=== PATIENT | male | born 1950 | race Caucasian/White ===

== ENCOUNTER → 2019-11-18 11:03 | Outpatient (CLI) | payer MEDICARE, BC, SELFPAY ==
--- NOTE | 2019-11-18 | DI.US.S_ITS ---
PROCEDURE: US ABDOMEN LIMITED INDICATIONS: Right lower quadrant, in groin area. TECHNIQUE: Real-time focused scanning was performed of the abdomen, with image documentation. COMPARISON: None. FINDINGS: Scanning over the right groin and right lower quadrant reveals no underlying evidence of inguinal hernia or mass. No abnormal fluid collection is seen. IMPRESSION: Normal limited targeted right lower quadrant and groin region ultrasound. Depending on the clinical status followup by CT scanning may become necessary. Dictated by: Lanre Stewart M.D. on 11/18/2019 at 13:34 Approved by: Lanre Stewart M.D. on 11/18/2019 at 13:35
--- NOTE | 2019-11-18 | DI.RAD.S_ITS ---
PROCEDURE: XR HIP W PEL IF DONE RT 2V INDICATIONS: Right lower quadrant pain/ right hip pain TECHNIQUE: 2 views of the hip were acquired. COMPARISON: None. FINDINGS: Bones: No fractures or dislocations. No suspicious bony lesions. The visualized pelvic ring appears intact. There is mild bilateral hip joint osteoarthritis as indicated by joint space narrowing, slightly greater on the right than the left. Soft tissues: No suspicious soft tissue calcifications or masses. IMPRESSION: Right greater than left mild bilateral hip joint osteoarthritis as indicated by slight hip joint space narrowing. Dictated by: Lanre Stewart M.D. on 11/18/2019 at 12:03 Approved by: Lanre Stewart M.D. on 11/18/2019 at 12:04
== END ==
PROVIDERS: PCP Family Medicine; Referring Provider Internal Medicine; Visit Provider Internal Medicine
DX: R10.31 Right lower quadrant pain (principal); M25.551 Pain in right hip; M16.0 Bilateral primary osteoarthritis of hip
CPT/HCPCS: 73502; 76705

== ENCOUNTER → 2019-12-23 10:57 | Outpatient (CLI) | payer MEDICARE, BC, SELFPAY ==
[2019-12-23 12:49] LABS: Alanine Aminotransferase 21 IU/L (<50); Albumin 4.4 g/dL (3.5-5.0); Albumin Globulin Ratio 1.7 (1.0-2.8); Alkaline Phosphatase 74 U/L (38-126); Aspartate Aminotransferase 27 IU/L (17-59); BUN Creatinine Ratio 17.9 (6-22); Blood Urea Nitrogen 14 mg/dL (9-20); Calcium 9.5 mg/dL (8.4-10.2); Carbon Dioxide 27 mmol/L (22-32); Chloride 106 mmol/L (98-107); Estimated Glomerular Filt Rate > 60.0 mL/min (>60); Globulin 2.6 g/dL (1.7-4.1); Glucose 97 mg/dL (80-110); HEMOLYSIS < 15 (0-50); Potassium 4.8 mmol/L (3.4-5.1); Sodium 138 mmol/L (137-145)
--- NOTE | 2019-12-23 12:57 | DI.CT.S_ITS ---
PROCEDURE: CT ABDOMEN PELVIS W CON INDICATIONS: right lower quadrant pain TECHNIQUE: After the administration of oral and intravenous contrast, 5 mm thick sections acquired from the diaphragms to the symphysis. 5 mm thick coronal and sagittal reformats were performed. For radiation dose reduction, the following was used: automated exposure control, adjustment of mA and/or kV according to patient size. COMPARISON: [facility], , ABDOMEN LIMITED, 11/18/2019, 11:31. FINDINGS: Image quality: Excellent. ABDOMEN: Lung bases: Lung bases are clear. Heart size is normal. Solid organs: Liver is normal in size and enhancement. Subcentimeter hypodensity in the right lobe of the liver which is most likely a benign cyst or hemangioma. Gallbladder is unremarkable . Biliary system is non-dilated. Pancreas enhances normally. Spleen is normal in size and enhancement. No adrenal nodules. Kidneys are normal in size and enhancement, without hydronephrosis. Left kidney simple cyst measuring 2.9 cm. Peritoneum and bowel: No small bowel obstruction. Diverticulosis without diverticulitis. Normal appendix. No free fluid. No pneumoperitoneum. Nodes and vessels: No retroperitoneal or mesenteric adenopathy. Aorta and inferior vena cava are normal in caliber. Miscellaneous: No ventral hernias. PELVIS: Genitourinary: Bladder wall thickness is normal. Prostatomegaly. Miscellaneous: No inguinal hernias identified. No adenopathy. Bones: No suspicious bony lesions. Minimal anterior listhesis of L4 on L5. Mild lumbar spine degenerative change. No vertebral body compression fractures. IMPRESSION: No acute abnormality identified. No acute appendicitis. No free fluid. Diverticulosis without diverticulitis. Dictated by: Braeden Flores M.D. on 12/23/2019 at 14:24 Approved by: Braeden Flores M.D. on 12/23/2019 at 14:32
== END ==
PROVIDERS: PCP Family Medicine; Referring Provider Family Medicine; Visit Provider Family Medicine
DX: R10.31 Right lower quadrant pain (principal); N40.0 Benign prostatic hyperplasia without lower urinary tract symptoms; K57.90 Diverticulosis of intestine, part unspecified, without perforation or abscess without bleeding; N28.1 Cyst of kidney, acquired
CPT/HCPCS: 36415; 74177; 80053; Q9967

== ENCOUNTER → 2019-12-26 08:13 | Outpatient (CLI) | payer MEDICARE, BC, SELFPAY ==
[2019-12-27 03:08] LABS: COVID19 Sendout Not Detected (Not Detect)
== END ==
PROVIDERS: PCP Family Medicine; Visit Provider Physician Assistant
DX: Z11.59 Encounter for screening for other viral diseases (principal)
CPT/HCPCS: 87635

== ENCOUNTER 2019-12-29 13:03 | Day surgery (SDC) | payer MEDICARE, BC, SELFPAY ==
--- NOTE | 2019-12-29 11:55 | PM.HP.1 ---
History of Present Illness History of Present Illness Date Patient Seen: 12/29/19 Chief complaint: SDC Narrative: 69 year old male comes in today for consideration of a screening colonoscopy. He has had 2 previous lifetime colonoscopies, reportedly normal and indicated for screening only. Results not available at time of dictation. There have been no lower GI symptoms suggesting disease such as change in bowel habits, bleeding, abdominal pain or anemia. There's been no family history of colon cancer or colon polyps. Overall health issues have been stable, including no major cardiac events for at least 6 weeks. PCP: Dr. Alonzo Past medical history: Tendinitis Benign essential tremor Obstructive sleep apnea Allergic rhinitis BPH with urinary obstruction Osteoporosis idiopathic Depression Chronic leg pain Past surgical history: Hernia repair Tonsillectomy Family history: Noncontributory Social history: Retired, . Patient History Medical History (Updated 12/29/19 @ 13:11 by Kate Lopez RN) Allergic rhinitis (Acute) Benign essential tremor (Acute) BPH without urinary obstruction (Acute) Chronic leg pain (Acute) Depression, major, recurrent (Acute) Fatigue (Acute) Osteoporosis, idiopathic (Acute) Sleep apnea, obstructive (Acute) Tendonitis (Acute) Surgical History (Updated 12/29/19 @ 13:16 by Kate Lopez RN) H/O hernia repair (Acute) History of tonsillectomy (Acute) Meds Home Medications and Allergies Home Medications Medication Instructions Recorded Confirmed Type azelastine 1 spray INTRANASAL PRN 12/29/19 History etodolac 400 mg PO PRN PRN 12/29/19 12/29/19 History gabapentin 200 mg PO PRN PRN 12/29/19 12/29/19 History sertraline 150 mg PO DAILY 12/29/19 12/29/19 History Review of Systems Review of Systems ROS: Yes All systems reviewed with the patient and are negative except as otherwise documented Exam Narrative Exam Narrative: GENERAL: Alert and oriented, appearing stated age and in no acute distress. HEENT: Head normocephalic/atraumatic. Pupils equal, round, and reactive to light and accomodation. Extraocular muscles intact. Nasal mucosa moist, septum midline. Oral mucosa moist, no lesions. Neck soft and supple, no lymphadenopathy. LUNGS: Clear to ausculation bilaterally, no wheezes, rhonchi or rales. CV: Normal S1 and S2 with regular rate and rhythm, no audible murmurs, rubs or gallops. ABDOMEN: Soft, non-tender, non-distended, no organomegaly. Positive bowel sounds. EXTREMITIES: No clubbing, cyanosis, or edema. NEURO: Cranial nerves II through XII grossly intact, no focal deficits. PSYCH: Alert and oriented x 3. SKIN: No concerning lesions. Assessment & Plan Assessment & Plan narrative: 1. Screening for colon cancer Plan for colonoscopy. The nature and character of the procedure as well as anticipated results were discussed. The possibility of not completing the procedure was also discussed. Possible complications including aspiration pneumonia, bleeding, perforation and reaction to medications either for sedation or preparation and missed lesions were discussed. Questions were answered and proceeding to the colonoscopy was elected. Informed consent signed. I sincerely appreciate the referral allowing me to participate in this patient's care. Please contact me with any questions or concerns.
--- NOTE | 2019-12-29 11:58 | PM.OP.ENDO ---
Operative Date/Time/Diagnoses Date of procedure: 12/29/19 Pre-op diagnosis: 1. Screening for colon cancer Post-op diagnosis: other (As below) Procedure & Clinicians Study performed: Colonoscopy Same procedure as scheduled: Yes Surgeon: Stephanie Acosta Procedure Notes SCOAP/Timeout: 2:52 p.m. Procedure in detail: ENDOSCOPIST: Stephanie Acosta MD Sedation RN: Francis Parker RN Sedation start time: 2:53 p.m. Sedation end time: 3:07 p.m. PROCEDURE: Colonoscopy INDICATIONS: 1. Screening for colon cancer MEDICATION: Levsin 0.125 mg sublingual, incremental doses of Versed and fentanyl until appropriate level sedation achieved. ASA CLASS: 2 CECAL WITHDRAWAL TIME: 7 COMPLICATIONS: None. EXTENT OF PROCEDURE: Cecum. QUALITY OF PREP: Good with portions of liquid stool. PROCEDURE: Prior to insertion of the colonoscope, a digital rectal examination was accomplished with circumferential palpation of the distal rectal mucosa without significant findings being noted. The high-definition colonoscope was passed into the rectum in the usual fashion and advanced over to the cecum without difficulty. The ileocecal valve, appendiceal stoma, and medial wall all could be inspected and no abnormalities were seen. ASCENDING COLON: As the colonoscope was withdrawn, care was taken to expose and inspect the haustral folds and no abnormalities were seen. HEPATIC FLEXURE: Normal, no polyps, diverticula or other abnormalities. TRANSVERSE COLON: Normal, no polyps, diverticula or other abnormalities. DESCENDING COLON: Normal, no polyps, diverticula or other abnormalities. SIGMOID COLON: Minor diverticulosis, otherwise, normal, no polyps or other abnormalities. RECTUM: Normal. J maneuver was produced. There was no significant perianal disease. The J maneuver was broken. The remainder of the rectum was inspected and there was no external hemorrhoid disease. The scope was withdrawn. IMPRESSION: 1. Normal colonoscopy 2. Diverticulosis, minor, left-sided PLAN: 1. Repeat colonoscopy in 10 years, patient may consider opting out of screening at age 79 if life expectancy is less than 10 years. The possibility of a missed lesion including a malignancy has been discussed with the patient previously. Potential alarm symptoms have been discussed and should be reported immediately. Complications: none Post-procedure Recommendations: Colonscopy in 10 years Follow up: as needed Disposition: PACU
[2019-12-29] MEDS: HYOSCYAMINE 0.125 MG TABLET PO (13:36)
[2019-12-29] MEDS: LACTATED RINGERS 1,000 ML 200 ML IV (13:44)
[2019-12-29 13:46] VITALS: BP 141/87; PULSE 53; RESP 16; TEMP 36.4; O2SAT 96; BMI 25.1
[2019-12-29] MEDS: MIDAZOLAM 5 MG/5 ML VIAL IV (14:53)
[2019-12-29] MEDS: fentaNYL 250 MCG/5 ML INJ IV (14:58)
[2019-12-29 15:14] VITALS: BP 123/79; PULSE 52; RESP 14; TEMP 36.2; O2SAT 94
[2019-12-29 15:18] VITALS: BP 123/79; PULSE 51; RESP 14; O2SAT 93
[2019-12-29 15:22] VITALS: BP 130/87; PULSE 55; RESP 16; O2SAT 96
[2019-12-29 15:27] VITALS: BP 138/85; PULSE 54; RESP 15; TEMP 36.9; O2SAT 95
[2019-12-29 15:51] VITALS: BP 140/93; PULSE 59; RESP 17; TEMP 36.3; O2SAT 97
== END 2019-12-29 15:53 | disposition home or self-care (01) ==
PROVIDERS: PCP Family Medicine; Referring Provider Family Medicine; Visit Provider Student in an Organized Health Care Education/Training Program
PROC: 0DJD8ZZ Inspection of Lower Intestinal Tract, Via Natural or Artificial Opening Endoscopic (ICD-10-PCS; CPT 45378; principal; 2019-12-29 14:30)
DX: Z12.11 Encounter for screening for malignant neoplasm of colon (principal); G47.33 Obstructive sleep apnea (adult) (pediatric); K57.30 Diverticulosis of large intestine without perforation or abscess without bleeding
CPT/HCPCS: G0121; J2250; J3010

== ENCOUNTER → 2020-11-19 08:52 | Outpatient (CLI) | payer MEDICARE, BC, SELFPAY ==
[2020-11-19 09:34] LABS: COVID19 -Nasal RAPID Negative (Negative)
== END ==
PROVIDERS: Referring Provider Internal Medicine; Visit Provider Internal Medicine
DX: Z20.822 Contact with and (suspected) exposure to COVID-19 (principal)
CPT/HCPCS: 87635; C9803

== ENCOUNTER → 2020-11-19 10:53 | Outpatient (CLI) | payer MEDICARE, BC, SELFPAY ==
--- NOTE | 2020-11-24 11:05 | PM.PFT.1 ---
Pulmonary Function Test Referral & Results Date Patient Seen: 11/19/20 Requesting provider: Margarito Love Results: The spirometry demonstrates an FVC of 4.39 L which is 96% of predicted. The FEV1 was measured at 3.02 L which is 90% of predicted. The FEV1/FVC ratio was 69 which is 94% of predicted. Following the administration of bronchodilator there was a 36% improvement in FEF 25-75%. Lung volumes show an SVC of 4.41 L which is 93% of predicted. The diffusing capacity was measured at 27.69 which is 82% of predicted. The maximum voluntary ventilation was normal Interpretation: This study demonstrates perhaps extremely mild obstructive lung disease based on very minimal reduction FEV1, shape a flow volume loop, and minimal improvement in small airway flow based on change in FEF 25-75% as above after bronchodilator. This study could also be interpreted as normal
== END ==
PROVIDERS: PCP Family Medicine; Referring Provider Family Medicine; Visit Provider Family Medicine
DX: R06.02 Shortness of breath (principal); J98.8 Other specified respiratory disorders; Z87.891 Personal history of nicotine dependence; Z20.822 Contact with and (suspected) exposure to COVID-19
CPT/HCPCS: 87635; 94060; 94726; 94729; C9803

== ENCOUNTER → 2023-06-13 13:38 | Outpatient (CLI) | payer MEDICARE, BC, SELFPAY ==
--- NOTE | 2023-06-13 13:40 | DI.US.S_ITS ---
PROCEDURE: US ABD AORTA ANEURYSM SCREEN INDICATIONS: Personal history of nicotine dependence TECHNIQUE: Real time scanning was performed of the aorta and iliac arteries, with image documentation. COMPARISON: None. FINDINGS: Aorta: Proximal aortic diameter measures 2.6 cm. Mid-aorta measures 2.2 cm. Distal aortic diameter is 2.1 cm. Iliac arteries: Right common iliac artery measures 1.9 cm. Left common iliac artery measures 1.7 cm. IMPRESSION: No evidence of abdominal aortic aneurysm. Comment: Based on the size of the proximal aorta, consider follow-up imaging in 5 years. Dictated by: Sterling Wolfe M.D. on 06/13/2023 at 17:30 Approved by: Sterling Wolfe M.D. on 06/13/2023 at 17:31
== END ==
PROVIDERS: PCP Family Medicine; Referring Provider Family Medicine; Visit Provider Family Medicine
DX: Z13.6 Encounter for screening for cardiovascular disorders (principal); Z87.891 Personal history of nicotine dependence
CPT/HCPCS: 76706

== ENCOUNTER 2024-07-02 10:24 | Emergency (ER) | payer MEDICARE, BC, SELFPAY ==
[2024-07-02] VITALS (12 sets, daily range): BP systolic 140–173; BP diastolic 82–97; PULSE 52–60; RESP 12–22; TEMP 36.4; O2SAT 94–97; BMI 25.8
--- NOTE | 2024-07-02 11:07 | EKG_ITS ---
[address] [address] Test Date: 2024-07-02 Pat Name: Alex Lyn Department: Room: Gender: Male Supervisor Final: ROBERT : 1950 Requested By: Order Number: [id number] Reading MD: Velasquez Holloway MD Measurements Intervals [place] Rate: 58 P: 37 NE: 172 QRS: -6 QRSD: 92 T: -6 QT: 428 QTc: 420 Interpretive Statements Sinus bradycardia Electronically Signed On 07-03-2024 7:36:25 PST by Velasquez Holloway MD
--- NOTE | 2024-07-02 11:07 | DI.RAD.S_ITS ---
PROCEDURE: XR CHEST 1V INDICATIONS: chest pain TECHNIQUE: One view of the chest was acquired. COMPARISON: None. FINDINGS AND IMPRESSION: On this limited single view study, no airspace consolidation or pleural effusion is seen. Normal heart size. Mildly tortuous aorta. Degenerative osseous changes. Right chest wall nerve stimulator partially seen. Dictated by: Jabari Mike M.D. on 07/02/2024 at 12:09 Approved by: Jabari Mike M.D. on 07/02/2024 at 12:10
--- NOTE | 2024-07-02 11:07 | DI.CT.S_ITS ---
PROCEDURE: CT HEAD/BRAIN WO CON INDICATIONS: head pain nausea,recent brain stimulator placed. pt in triag TECHNIQUE: Noncontrast 4.5 mm thick angled axial sections acquired from the foramen magnum to the vertex, with coronal and sagittal reformats. For radiation dose reduction, the following was used: automated exposure control, adjustment of mA and/or kV according to patient size. COMPARISON: None. FINDINGS: Image quality: Diagnostic CSF spaces: Basal cisterns are patent. Lateral ventricles are symmetric. Volume: Vascular calcifications. Periventricular white matter disease is commonly seen with chronic microangiopathy. Volume loss is present. These findings are [id number] Brain: Mild edema is seen surrounding the deep brain stimulator, which is in expected position with tip near the thalamus. No acute hemorrhage. No gross loss of valdes-white differentiation. Craniofacial structures: Right calvarial and scalp postsurgical changes IMPRESSION: No acute hemorrhage or gross loss of valdes-white differentiation. Deep brain stimulator in place, tip is near the thalamus. There is mild edema adjacent to the stimulator in the right frontal lobe, likely postprocedural. Dictated by: Jabari Mike M.D. on 07/02/2024 at 12:10 Approved by: Jabari Mike M.D. on 07/02/2024 at 12:12
[2024-07-02 11:22] LABS: Add Manual Diff / Slide Review NO; Basophils Absolute Auto 0 /uL (0-100); Basophils Percent Auto 0.6 % (0-2); Eosinophils Absolute Auto 0 /uL (0-450); Eosinophils Percent Auto 0.1 % (2-4); Hematocrit 47.3 % (41-53); Hemoglobin 16.9 g/dL (13.5-17.5); Lymphocytes Absolute Auto 800 /uL (1100-4500); Mean Corpuscular HGB Conc 35.6 % (30-36); Mean Corpuscular Hemoglobin 34.5 PG (26-34); Mean Corpuscular Volume 96.9 fL (80-100); Monocytes Absolute Auto 300 /uL (0-900); Monocytes Percent Auto 3.8 % (3-14); Neutrophils Absolute Auto 7500 /uL (1500-7000); Neutrophils Percent Auto 86.5 % (50-75); Platelet Count 286 X10^3/uL (150-400); Red Blood Cell Count 4.88 X10^6/uL (4.5-5.9); Red Cell Distribution Width 12.3 % (11.6-14.8); White Blood Cell Count 8.6 X10^3/uL (4.5-11.0)
[2024-07-02 11:26] LABS: Prothrombin Time 11.5 SECONDS (9.4-12.5)
[2024-07-02 11:28] LABS: PTT Partial Thromboplastin Tim 31 SECONDS (25.1-36.5)
[2024-07-02 11:30] LABS: Alanine Aminotransferase 52 IU/L (<50); Albumin 4.6 g/dL (3.5-5.0); Albumin Globulin Ratio 1.6 (1.0-2.8); Alkaline Phosphatase 77 U/L (38-126); Aspartate Aminotransferase 42 IU/L (17-59); BUN Creatinine Ratio 18.6 (6-22); Bilirubin Total 1.1 mg/dL (0.2-1.3); Blood Urea Nitrogen 13 mg/dL (9-20); Calcium 9.9 mg/dL (8.4-10.2); Carbon Dioxide 19 mmol/L (22-32); Chloride 106 mmol/L (98-107); Creatine Kinase 46 U/L (55-170); Estimated Glomerular Filt Rate > 60 mL/min (>60); Globulin 2.8 g/dL (1.7-4.1); Glucose 139 mg/dL (80-110); HEMOLYSIS < 15 (0-50); Lipase 80 U/L (23-300); Potassium 4.1 mmol/L (3.4-5.1); Sodium 139 mmol/L (137-145); Total Protein 7.4 g/dL (6.3-8.2)
[2024-07-02 11:42] LABS: NT-proBNP (BNP-Adult 18+) 442 pg/mL (<125); Troponin I < 0.012 ng/mL (0.01-0.034)
--- NOTE | 2024-07-02 11:50 | PC.NURSE ---
This RNs first interaction with patient.
--- NOTE | 2024-07-02 13:06 | ED_ITS ---
HPI - Dizziness General Chief Complaint: Dizziness Stated Complaint: Throwing up, Dizzy,High blood pressure Time Seen by Provider: 07/02/24 12:46 Mode of arrival: Wheelchair History of Present Illness HPI Narrative: Patient here with . Complains dizziness with changes position getting up standing up with near-syncope. Has had nausea and vomiting. Symptoms started 23 hours ago at 2:00 p.m. yesterday. Patient is status post deep brain stimulator earlier this month at [facility]. It has not been activated/turned on, not until July. Stimulator is for essential tremor. Patient denies any recent illness fever chills cough cold or congestion. No prior history of vertigo. No hearing changes. No chest pain no palpitations no numbness tingling or weakness. No black or bloody stools. Related Data Home Medications Medication Instructions Recorded Confirmed azelastine 205.5 mcg (0.15 %) 1 spray intranasal PRN Unlisted 12/29/19 nasal spray etodolac 400 mg tablet 400 mg PO PRN PRN joint pain 12/29/19 12/29/19 gabapentin 100 mg capsule 200 mg PO PRN PRN tremors 12/29/19 12/29/19 sertraline 100 mg tablet 150 mg PO DAILY Anxiety or 12/29/19 12/29/19 Depression Previous Rx's Medication Instructions Recorded meclizine 25 mg tablet 25 mg PO QID PRN dizziness #20 tabs 07/02/24 ondansetron 4 mg disintegrating 4 mg PO Q8H PRN nausea and 07/02/24 tablet vomiting #20 tabs Allergies Allergy/AdvReac Type Severity Reaction Status Date / Time No Known Drug Allergies Allergy Verified 07/02/24 11:02 Review of Systems Review of Systems Narrative: GENERAL: Negative chills, fatigue, malaise, fever, sweats. HEENT: Negative sinus pain, ear pain, sore throat RESPIRATORY: Negative dyspnea, cough CARDIOVASCULAR: Negative chest pain, palpitations GASTROINTESTINAL: Negative nausea, vomiting, abdominal pain : Negative dysuria, frequency, hematuria MUSCULOSKELETAL: Negative muscle or bony pain SKIN: Negative rash, skin lesions NEUROLOGIC: Negative weakness, numbness, positive dizziness negative slurred speech negative facial droop negative limb weakness or numbness or tingling, positive headache which patient states is not new, positive tremors which is not new ROS Unobtainable: All systems reviewed & are unremarkable except as noted in HPI and below Patient History Medical History (Updated 07/02/24 @ 15:25 by Drake Rey MD) Depression, major, recurrent Osteoporosis, idiopathic Fatigue Chronic leg pain Benign essential tremor BPH without urinary obstruction Allergic rhinitis Sleep apnea, obstructive Tendonitis Surgical History (Updated 12/29/19 @ 13:16 by Kate Lopez RN) History of tonsillectomy H/O hernia repair Social History household members: spouse Smoking Status: Former smoker alcohol intake: current Smoking Status: Former smoker alcohol intake frequency: 0-2 drinks per day Exam Narrative Exam Narrative: GENERAL: in no distress, not toxic not dyspneic HEAD: Normocephalic. EYES: Pupils equal round, slight nystagmus horizontal ENT: Mucous membranes moist. NECK: Trachea midline. CARDIOVASCULAR: Regular rate and rhythm RESPIRATORY: Clear to auscultation. Breath sounds equal bilaterally. No wheezes, rales, or rhonchi. GASTROINTESTINAL: Abdomen soft, non-tender EXTREMITIES: No gross deformities. BACK: No flank tenderness. NEURO: AOx4. Clear speech, stood the patient up and feel off balance and sat back down in his bed. Feels much better, no facial droop light touch intact bilateral face hands and legs. 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 Fast exam is negative SKIN: Warm and dry PSYCH: Not anxious, is cooperative Initial Vital Signs Initial Vital Signs: Vital Signs Temperature 97.6 F 07/02/24 11:02 Pulse Rate 60 07/02/24 11:02 Respiratory Rate 14 07/02/24 11:02 Blood Pressure 168/97 H 07/02/24 11:02 Pulse Oximetry 96 07/02/24 11:02 Oxygen Delivery Method Room Air 07/02/24 11:02 Scores NIH Stroke Scale Level of Conciousness: Alert, keenly responsive Ask month/age: Answers both questions correctly. Open/close eyes, close hand: Performs both tasks correctly Best gaze horizontal: Normal Visual jay: No visual loss Facial palsy: Normal symetrical movement Left arm drift: No drift for full 10 sec Right arm drift: No drift for full 10 sec Left leg drift: No drift for full 5 sec Right leg drift: No drift for full 5 sec Limb ataxia: Absent Sensory on face/arms/legs: Normal, no sensory loss Best language: No aphasia, normal Dysarthria: Normal Extinction or inattention: No abnormality Total NIH Stroke scale score: 0 Course Orders Ordered: Discontinued Medications Sodium Chloride (Normal Saline 0.9%) 1,000 mls @ 1,000 mls/hr IV BOLUS ONE Stop: 07/02/24 14:04 Last Infusion: 07/02/24 15:33 Dose: Infused Documented By: Admin: 07/02/24 13:36 Dose: 1,000 mls/hr Documented By: JOANNE(2) Meclizine HCl (Meclizine Hcl 12.5 Mg Tablet) 25 mg PO NOW ONE Stop: 07/02/24 13:06 Last Admin: 07/02/24 13:36 Dose: 25 mg Documented By: JOANNE(2) Ondansetron HCl (Ondansetron 4 Mg/2 Ml Inj) 4 mg IV NOW PRN PRN Reason: Nausea And Vomiting Ondansetron HCl (Ondansetron 4 Mg Odt) 4 mg SL NOW PRN PRN Reason: Nausea And Vomiting Ondansetron HCl (Ondansetron 4 Mg/2 Ml Inj) 4 mg IV NOW ONE Stop: 07/02/24 13:06 Last Admin: 07/02/24 13:36 Dose: 4 mg Documented By: JOANNE(2) Vital Signs Vital signs: Vital Signs - 8 hr 07/02/24 11:02 07/02/24 11:56 07/02/24 11:57 Temperature 97.6 F Pulse Rate 60 60 58 L Respiratory Rate 14 13 Blood Pressure 168/97 H Pulse Oximetry 96 97 96 Oxygen Delivery Method Room Air 07/02/24 11:57 07/02/24 12:00 07/02/24 12:00 Temperature Pulse Rate 58 L Respiratory Rate 12 Blood Pressure 140/95 H 141/88 H Pulse Oximetry 95 Oxygen Delivery Method 07/02/24 12:30 07/02/24 12:30 07/02/24 13:00 Temperature Pulse Rate 59 L Respiratory Rate 13 Blood Pressure 141/88 H 150/89 H Pulse Oximetry 95 Oxygen Delivery Method 07/02/24 13:00 07/02/24 13:30 07/02/24 13:45 Temperature Pulse Rate 59 L 57 L Respiratory Rate 22 12 Blood Pressure 171/93 H Pulse Oximetry 97 94 Oxygen Delivery Method 07/02/24 13:45 07/02/24 14:00 07/02/24 14:00 Temperature Pulse Rate 53 L 53 L Respiratory Rate 14 12 Blood Pressure 161/93 H Pulse Oximetry 95 97 Oxygen Delivery Method MDM - Dizziness Lab Data 07/02/24 11:10 07/02/24 11:10 Labs: Lab Results 07/02/24 07/02/24 Range/Units 11:10 13:42 WBC 8.6 (4.5-11.0) X10^3/uL RBC 4.88 (4.5-5.9) X10^6/uL Hgb 16.9 (13.5-17.5) g/dL Hct 47.3 (41-53) % MCV 96.9 (80-100) fL MCH 34.5 H (26-34) PG MCHC 35.6 (30-36) % RDW 12.3 (11.6-14.8) % Plt Count 286 (150-400) X10^3/uL Neut % (Auto) 86.5 H (50-75) % Lymph % (Auto) 9.0 L (25-40) % Cross % (Auto) 3.8 (3-14) % Eos % (Auto) 0.1 L (2-4) % Baso % (Auto) 0.6 (0-2) % Neut # (Auto) 7500 H (5598-5465) /uL Lymph # (Auto) 800 L (5161-7774) /uL Cross # (Auto) 300 (0-900) /uL Eos # (Auto) 0 (0-450) /uL Baso # (Auto) 0 (0-100) /uL PT 11.5 (9.4-12.5) SECONDS INR 1.0 (0.9-1.3) APTT 31 (25.1-36.5) SECONDS Sodium 139 (137-145) mmol/L Potassium 4.1 (3.4-5.1) mmol/L Chloride 106 (98-107) mmol/L Carbon Dioxide 19 L (22-32) mmol/L BUN 13 (9-20) mg/dL Creatinine 0.70 (0.66-1.25) mg/dL Estimated GFR > 60 (>60) mL/min BUN/Creatinine Ratio 18.6 (6-22) Glucose 139 H (80-110) mg/dL Calcium 9.9 (8.4-10.2) mg/dL Magnesium 2.0 (1.6-2.3) mg/dL Total Bilirubin 1.1 (0.2-1.3) mg/dL AST 42 (17-59) IU/L ALT 52 H (<50) IU/L Alkaline Phosphatase 77 (38-126) U/L Total Creatine Kinase 46 L (55-170) U/L Troponin I < 0.012 (0.01-0.034) ng/mL NT-Pro-B Natriuret Pep 442 H (<125) pg/mL Total Protein 7.4 (6.3-8.2) g/dL Albumin 4.6 (3.5-5.0) g/dL Globulin 2.8 (1.7-4.1) g/dL Albumin/Globulin Ratio 1.6 (1.0-2.8) Lipase 80 (23-300) U/L SARS-CoV-2 (PCR) Negative (Negative) Influenza A (RT-PCR) Flu a negative (NEGATIVE) Influenza B (RT-PCR) Flu b negative (NEGATIVE) RSV (PCR) Negative (Negative) Imaging Data CT scan - head: Radiologist's Impression: [place] [address] CT Scan Report Signed Patient: Alex Lyn MR#: [id number] : 1950 Acct:[id number] Age/Sex: 73 / M Date of Service: 07/02/24 Loc: ED Accession Number: [id number] Procedure: CT head/brain wo con Ordering Provider: Drake Rey MD PROCEDURE: CT HEAD/BRAIN WO CON INDICATIONS: head pain nausea,recent brain stimulator placed. pt in triag TECHNIQUE: Noncontrast 4.5 mm thick angled axial sections acquired from the foramen magnum to the vertex, with coronal and sagittal reformats. For radiation dose reduction, the following was used: automated exposure control, adjustment of mA and/or kV according to patient size. COMPARISON: None. FINDINGS: Image quality: Diagnostic CSF spaces: Basal cisterns are patent. Lateral ventricles are symmetric. Volume: Vascular calcifications. Periventricular white matter disease is commonly seen with chronic microangiopathy. Volume loss is present. These findings are ycss-yv-fevzunga Brain: Mild edema is seen surrounding the deep brain stimulator, which is in expected position with tip near the thalamus. No acute hemorrhage. No gross loss of valdes-white differentiation. Craniofacial structures: Right calvarial and scalp postsurgical changes IMPRESSION: No acute hemorrhage or gross loss of valdes-white differentiation. Deep brain stimulator in place, tip is near the thalamus. There is mild edema adjacent to the stimulator in the right frontal lobe, likely postprocedural. Dictated by: Jabari Mike M.D. on 07/02/2024 at 12:10 Approved by: Jaabri Mike M.D. on 07/02/2024 at 12:12 Chest x-ray: Radiologist's Impression: [place] [address] XRay Report Signed Patient: Alex Lyn MR#: [id number] : 1950 Acct:[id number] Age/Sex: 73 / M Date of Service: 07/02/24 Loc: ED Accession Number: [id number] Procedure: XR chest 1V Ordering Provider: Drake Rey MD PROCEDURE: XR CHEST 1V INDICATIONS: chest pain TECHNIQUE: One view of the chest was acquired. COMPARISON: None. FINDINGS AND IMPRESSION: On this limited single view study, no airspace consolidation or pleural effusion is seen. Normal heart size. Mildly tortuous aorta. Degenerative osseous changes. Right chest wall nerve stimulator partially seen. Dictated by: Jabari Mike M.D. on 07/02/2024 at 12:09 Approved by: Jabari Mike M.D. on 07/02/2024 at 12:10 CTA - brain/neck: Radiologist's Impression: [place] [address] CT Scan Report Signed Patient: Alex Lyn MR#: [id number] : 1950 Acct:[id number] Age/Sex: 73 / M Date of Service: 07/02/24 Loc: ED Accession Number: [id number] Procedure: CT angio head and neck Ordering Provider: Drake Rey MD PROCEDURE: CT ANGIO HEAD AND NECK INDICATIONS: Ataxia TECHNIQUE: After the administration of intravenous contrast, 1 mm thick sections acquired from the aortic arch through the [place] of [place]. 3-dimensional txropvv-scyefghdf-rztijgyquv (MIP) and/or volume rendering reformats were acquired of the central intracranial vasculature and neck separately. For radiation dose reduction, the following was used: automated exposure control, adjustment of mA and/or kV according to patient size. COMPARISON: None. FINDINGS: Image quality: Diagnostic. BRAIN: Please refer to separately dictated CT of the head. HEAD CT ANGIOGRAPHY: Anterior circulation: Intracranial internal carotid arteries are normal in size and flow. The flow within the paired anterior cerebral arteries is normal and symmetric. The flow within the middle cerebral arteries is normal and symmetric. The anterior communicating artery is seen. No aneurysms are seen. Posterior circulation: Visualized portions of the vertebral arteries demonstrate normal caliber, and join to form a normal appearing basilar artery. Flow within the posterior cerebral arteries is normal and symmetric. No aneurysms are seen. NECK CT ANGIOGRAPHY: Carotid system: The great vessels demonstrate a conventional anatomy as they arise from the aortic arch. The origins of the common carotid arteries appear patent. The common carotid arteries demonstrate normal caliber and courses. The bifurcation regions are both widely patent. Area of dilatation of the mid right internal carotid artery measuring approximately 1 x 1 cm and spanning 2.1 cm cranial caudally. Otherwise, the internal carotid arteries are normal in caliber.. Posterior circulation: The origins of the vertebral arteries both appear widely patent. The more superior extracranial portions of both vertebral arteries also demonstrate normal courses and calibers. They join to form a normal appearing basilar artery. Soft tissues: Visualized neck soft tissues demonstrate no suspicious abnormalities. Bones: No suspicious bony lesions. Visualized cervical spine appears normally aligned. Degenerative changes of the spine. IMPRESSION: No significant intracranial arterial abnormality is seen. Area of dilatation of the right mid extracranial internal carotid artery measuring 1 x 1 cm, may represent an aneurysm. Otherwise, no significant abnormality is seen within the arteries of the neck. Any quantitative measurements of stenosis were performed using NASCET criteria. Dictated by: Jn Llanos M.D. on 07/02/2024 at 14:16 Approved by: Jn Llanos M.D. on 07/02/2024 at 14:22 MDM Narrative Medical decision making narrative: Patient here with . Complains dizziness with changes position getting up standing up with near-syncope. Has had nausea and vomiting. Symptoms started 23 hours ago at 2:00 p.m. yesterday. Patient is status post deep brain stimulator earlier this month at [facility]. It has not been activated/turned on, not until July. Stimulator is for essential tremor. Patient denies any recent illness fever chills cough cold or congestion. No prior history of vertigo. No hearing changes. No chest pain no palpitations no numbness tingling or weakness. No black or bloody stools After history and exam CT head EKG CBC CMP MDM Medical records reviewed: No recent visit for this complaint Differential considered: Includes but not limited to arrhythmia stroke dehydration vertigo anemia Lab Test results independently reviewed as above. Pertinent findings: WBC 8.6 hemoglobin 16.9 INR 1.0 sodium 139 potassium 4.1 bicarb 19 BUN 13 creatinine 0.7 glucose 139 AST 42 ALT 52 troponin less than 0.012 BNP 442 Independently reviewed EKG sinus bradycardia rate 58 otherwise normal EKG Imaging studies independently reviewed: CT head no acute finding chest x-ray no acute finding CT angiogram head and neck no acute finding Consultations: 3:19 p.m.. Spoke with [facility], Soraya Tripp, he has reviewed imaging. Patient can be follow up in their clinic. They are the only vascular services at [facility]. Primary care can give referral 3:29 p.m.. Spoke with primary care provider dr sam, who will place referral for vascular surgery for patient. He sees patient tomorrow in the office. He agrees with treatment plan. Treatments: Normal saline meclizine Zofran Re-evaluations: 2:46 p.m.. Patient feeling much better. Given IV fluids and meclizine and Zofran. Patient able to stand up at bedside without any dizziness now. He could not do this before. Reviewed them likely vertigo versus dehydration. Awaiting for CT angiogram to be reviewed by vascular surgeon for the right carotid artery, they do understand. This may not likely be the source of his dizziness. But needs to be evaluated before he leaves. Discussion: Appropriate for discharge home. Patient's symptoms improved with conservative treatment and meclizine Zofran and normal saline. Likely vertigo causing patient's symptoms. Return precautions reviewed. They desire discharge home. I did speak with vascular surgery as well as primary care provider. Diagnosis: Dizziness/vertigo Discharge Plan Departure Patient Disposition: Home Clinical Impression: Vertigo Instructions: DI for Vertigo Activity Restrictions/Additional Instructions: I am glad you are feeling better. Prescription for nausea medication and dizziness has been sent to your pharmacy to [facility] and continue. Please see your family doctor tomorrow as scheduled for re-evaluation and get referral to [facility] vascular surgery regarding the findings on your neck arteries. Prescriptions: New ondansetron 4 mg tablet,disintegrating 4 mg PO Q8H PRN (Reason: nausea and vomiting) Qty: 20 0RF meclizine 25 mg tablet 25 mg PO QID PRN (Reason: dizziness) Qty: 20 0RF No Action sertraline 100 mg Tablet 150 mg PO DAILY etodolac 400 mg Tablet 400 mg PO PRN PRN (Reason: joint pain) Rx Instructions: with food gabapentin 100 mg Capsule 200 mg PO PRN PRN (Reason: tremors) azelastine 0.15 % (205.5 mcg) Carr,Non-Aerosol 1 spray INTRANASAL PRN (Reason: Unlisted) Referrals: Margarito Sam MD [Primary Care Provider] - Erika Tripp PA-C [Non-Staff] - Stand Alone Forms: Patient Portal/API/Survey
--- NOTE | 2024-07-02 13:11 | DI.CT.S_ITS ---
PROCEDURE: CT ANGIO HEAD AND NECK INDICATIONS: Ataxia TECHNIQUE: After the administration of intravenous contrast, 1 mm thick sections acquired from the aortic arch through the [place] of [place]. 3-dimensional yxoazux-ziptjwuwc-swwxjcilhy (MIP) and/or volume rendering reformats were acquired of the central intracranial vasculature and neck separately. For radiation dose reduction, the following was used: automated exposure control, adjustment of mA and/or kV according to patient size. COMPARISON: None. FINDINGS: Image quality: Diagnostic. BRAIN: Please refer to separately dictated CT of the head. HEAD CT ANGIOGRAPHY: Anterior circulation: Intracranial internal carotid arteries are normal in size and flow. The flow within the paired anterior cerebral arteries is normal and symmetric. The flow within the middle cerebral arteries is normal and symmetric. The anterior communicating artery is seen. No aneurysms are seen. Posterior circulation: Visualized portions of the vertebral arteries demonstrate normal caliber, and join to form a normal appearing basilar artery. Flow within the posterior cerebral arteries is normal and symmetric. No aneurysms are seen. NECK CT ANGIOGRAPHY: Carotid system: The great vessels demonstrate a conventional anatomy as they arise from the aortic arch. The origins of the common carotid arteries appear patent. The common carotid arteries demonstrate normal caliber and courses. The bifurcation regions are both widely patent. Area of dilatation of the mid right internal carotid artery measuring approximately 1 x 1 cm and spanning 2.1 cm cranial caudally. Otherwise, the internal carotid arteries are normal in caliber.. Posterior circulation: The origins of the vertebral arteries both appear widely patent. The more superior extracranial portions of both vertebral arteries also demonstrate normal courses and calibers. They join to form a normal appearing basilar artery. Soft tissues: Visualized neck soft tissues demonstrate no suspicious abnormalities. Bones: No suspicious bony lesions. Visualized cervical spine appears normally aligned. Degenerative changes of the spine. IMPRESSION: No significant intracranial arterial abnormality is seen. Area of dilatation of the right mid extracranial internal carotid artery measuring 1 x 1 cm, may represent an aneurysm. Otherwise, no significant abnormality is seen within the arteries of the neck. Any quantitative measurements of stenosis were performed using NASCET criteria. Dictated by: Jn Llanos M.D. on 07/02/2024 at 14:16 Approved by: Jn Llanos M.D. on 07/02/2024 at 14:22
[2024-07-02] MEDS: ONDANSETRON 4 MG/2 ML INJ IV (13:36)
[2024-07-02] MEDS: MECLIZINE HCL 12.5 MG TABLET 25 MG PO (13:36)
[2024-07-02] MEDS: SODIUM CHLORIDE 0.9% 1,000 ML 1000 ML IV (13:36)
[2024-07-02 14:46] LABS: Influenza A - CEPHEID Flu A NEGATIVE (NEGATIVE); Influenza B - CEPHEID Flu B NEGATIVE (NEGATIVE); Respiratory Syncytial Virus Negative (Negative)
[2024-07-02 14:53] LABS: COVID-19 CEPHEID 4-PLEX PCR Negative (Negative)
== END 2024-07-02 15:31 | disposition home or self-care (01) ==
PROVIDERS: Emergency Provider Emergency Medicine; PCP Family Medicine
DX: R42 Dizziness and giddiness (principal); I10 Essential (primary) hypertension; R07.9 Chest pain, unspecified; R11.2 Nausea with vomiting, unspecified; R51.9 Headache, unspecified; R25.1 Tremor, unspecified; R29.700 NIHSS score 0
CPT/HCPCS: 0241U; 36415; 70450; 70496; 70498; 71045; 80053; 82550; 83690; 83735; 83880; 84484; 85025; 85610; 85730; 93005; 96361; 96374; 99284; J2405; Q9967

== ENCOUNTER → 2024-10-01 11:13 | Outpatient (CLI) | payer MEDICARE, BC, SELFPAY ==
--- NOTE | 2024-10-01 11:16 | DI.CT.S_ITS ---
PROCEDURE: CT HEAD/BRAIN WO CON INDICATIONS: ESSENTIAL TREMOR TECHNIQUE: Noncontrast 4.5 mm thick angled axial sections acquired from the foramen magnum to the vertex, with coronal and sagittal reformats. For radiation dose reduction, the following was used: automated exposure control, adjustment of mA and/or kV according to patient size. COMPARISON: [facility], CT, CT HEAD/BRAIN WO CON, 07/02/2024, 11:36. FINDINGS: Image quality: Diagnostic. CSF spaces: Basal cisterns are patent. No extra-axial fluid collections. The ventricles are symmetric in size and shape. Brain: No intracranial bleeds or mass effect. There is cerebral volume loss, with resultant ventricular and sulcal prominence. There are periventricular and deep white matter chronic small vessel ischemic changes. Stable right frontal deep brain stimulator with lead tip position in the right thalamus. Atherosclerotic calcifications in the right vertebral artery. Skull and face: Calvarium and visualized facial bones appear intact, without suspicious lesions. Sinuses: Visualized sinuses and mastoids are clear. IMPRESSION: No acute intracranial pathology. Dictated by: Shelly Mars MD, PhD on 10/01/2024 at 13:18 Approved by: Shelly Mars MD, PhD on 10/01/2024 at 13:19
== END ==
PROVIDERS: PCP Family Medicine; Referring Provider Family Medicine; Visit Provider Family Medicine
DX: G25.0 Essential tremor (principal)
CPT/HCPCS: 70450